=== PATIENT | male | born 1955 | race Asian ===

== ENCOUNTER 2024-03-15 05:36 | Emergency (ER) | payer MEDICAID ==
[~2024-03-15] VITALS: Ht 154.9 cm; Wt 65.9 kg
[2024-03-15 05:41] VITALS: TEMP 97.9
[2024-03-15 06:16] VITALS: BP 117/76; PULSE 79; RESP 16
[2024-03-15 06:18] LABS: BASOPHILS % (AUTO) 0.2 % (0.0-2.0); EOSINOPHILS % (AUTO) 3.8 % (1.0-6.0); HEMATOCRIT 47.7 % (41-53); HEMOGLOBIN 15.6 g/dL (13.5-17.5); LYMPHOCYTES # (AUTO) 1.1 K/uL (1.0-4.8); LYMPHOCYTES % (AUTO) 19.4 % (22.0-44.0); MEAN CORPUSCULAR HGB CONC 32.6 G/dL (31.0-37.0); MEAN CORPUSCULAR VOLUME 80 fL (80-100); MONOCYTES # (AUTO) 0.6 K/uL (0.1-1.0); MONOCYTES % (AUTO) 10.8 % (2.0-9.0); NEUTROPHILS # (AUTO) 3.9 K/uL (1.8-7.7); NEUTROPHILS % (AUTO) 65.8 % (40.0-70.0); PLATELET COUNT (AUTO) 187 K/uL (150-450); RED BLOOD CELL COUNT(AUTO) 5.99 MIL/uL (4.50-5.90); RED CELL DISTRIBUTION WIDTH 14.6 % (11.5-14.5); WHITE BLOOD COUNT (AUTO) 5.9 K/uL (4.5-11.0)
[2024-03-15] MEDS: CIPROFLOXACIN HCL 250 MG TABLET PO ONE (06:36)
[2024-03-15] MEDS: DIPHENOXYLATE/ATROP 2.5-0.025 MG TABLET PO ONE (06:36)
[2024-03-15 06:47] LABS: CALCIUM, TOTAL 9.3 mg/dL (8.8-10.5); CREATININE 1.28 mg/dL (0.60-1.30); POTASSIUM 3.7 mmol/L (3.5-5.1)
[2024-03-15 06:54] LABS: TROPONIN I-HIGH SENSITIVITY Less Than 4 ng/L (<76)
== END 2024-03-15 08:50 | disposition still patient (30) ==
LOC: EMS 05:39
DX: R19.7 Diarrhea, unspecified (principal)
CPT/HCPCS: 71045; 80048; 83690; 84484; 85025; 93005; 99285; 36415-L1; 36415-TC